=== PATIENT | female | born 1990 | race Caucasian/White ===

== ENCOUNTER 2021-02-18 17:39 | Emergency (ER) | payer OTHER ==
[~2021-02-18] VITALS: Ht 160 cm; Wt 86.6 kg
[2021-02-18 17:40] VITALS: BP 116/77
--- NOTE | 2021-02-18 17:40 | NUR ---
30 y/o F BIBA from work c/o anxiety + headache since 4PM. Pt reports recurring anxiety attacks due to stressors at home. States anxiety attacks 1x/week. Pt states 9/10 headache at this time since 4PM. States oldest child doing online class and states "it's hard not being at home for her because she's struggling with school." SpO2 97% on room air. RR 40 on scene, coached with breathing exercises. Denies medications prior to arrival. Denies triggers, fever, chills, nausea, vomiting, chest pain, SOB. Bed locked in lowest position, side rails x 1, call light in reach. PMH/Sx/Meds: Denies (anxiety undiagnosed) SYDNIEA
--- NOTE | 2021-02-18 17:40 | NUR ---
Pt ambulated to bed 09 with steady/even gait from MEKA gould.
--- NOTE | 2021-02-18 19:10 | NUR ---
Report and transfer of care endorsed to SIMON Johnson & LIN GarciaN
[2021-02-18] MEDS ORDERED: HYDR25CA1 PO (19:16)
[2021-02-18] MEDS ORDERED: ACETAMINOPHEN 325 MG TAB PO ONE (19:30)
[2021-02-18 19:35] VITALS: BP 114/72
--- NOTE | 2021-02-18 19:35 | NUR ---
Patient discharged with v/s stable. Written and verbal after care instructions given and explained. Patient alert, oriented and verbalized understanding of instructions. Ambulatory with steady gait. All questions addressed prior to discharge. ID band removed. Patient advised to follow up with PMD. Rx of vistaril given. Patient educated on indication of medication including possible reaction and side effects. Opportunity to ask questions provided and answered.
== END 2021-02-18 19:35 | disposition home or self-care (01) ==
LOC: MED 17:39
DX: F41.9 Anxiety disorder, unspecified (principal); R00.2 Palpitations; R06.02 Shortness of breath
CPT/HCPCS: 99283